=== PATIENT | female | born 1990 | race Caucasian/White ===

== ENCOUNTER 2017-10-18 16:45 | Emergency (ER) | payer OTHER ==
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
[2017-10-18 19:09] VITALS: BP 107/67
== END 2017-10-18 19:08 | disposition home or self-care (01) ==
LOC: ED 16:45
DX: T17.990A Other foreign object in respiratory tract, part unspecified in causing asphyxiation, initial encounter (principal); W16.42XA Fall into unspecified water causing other injury, initial encounter; Y92.095 Swimming-pool of other non-institutional residence as the place of occurrence of the external cause
CPT/HCPCS: 99282; 99283

== ENCOUNTER 2018-05-02 07:35 | Emergency (ER) | payer OTHER ==
--- NOTE | 2018-05-02 07:43 | ED Physician Documentation ---
PD HPI FEMALE - Stated complaint Stated Complaint: PELVIC PX/FEMALE - History obtained from History obtained from: Patient - History of Present Illness Timing - onset: Today Timing - duration: Hours Timing - details: Abrupt onset, Still present Associated symptoms: Abdominal pain (lower abd), Back pain (flank pain both sides), Dysuria, Urinary frequency. No: Fever, Vaginal discharge, Genital sore/lesion Contributing factors: No: , Exposed to STD Recently seen: Not recently seen Review of Systems Constitutional: denies: Fever, Chills, Myalgias Nose: denies: Rhinorrhea / runny nose, Congestion Throat: denies: Sore throat Respiratory: denies: Cough GI: reports: Abdominal Pain, Nausea : reports: Dysuria, Frequency. denies: Discharge Skin: denies: Rash Musculoskeletal: reports: Back pain PD PAST MEDICAL HISTORY - Past Medical History Cardiovascular: None Respiratory: None Neuro: None Endocrine/Autoimmune: None - Past Surgical History Past Surgical History: Yes - Present Medications Home Medications: Ambulatory Orders Medication Instructions Recorded Confirmed Phenazopyridine HCl [Pyridium] 200 mg PO TID PRN #6 tablet 05/02/18 Sulfamethox/Trimeth 800/160 1 each PO BID #14 tablet 05/02/18 [Bactrim Ds 800/160] - Allergies Allergies/Adverse Reactions: Allergies Allergy/AdvReac Type Severity Reaction Status Date / Time No Known Drug Allergies Allergy Verified 05/02/18 07:53 - Social History Does the pt smoke?: No Smoking Status: Never smoker Does the pt drink ETOH?: No Does the pt have substance abuse?: No - Immunizations Immunizations are current?: Yes - POLST Patient has POLST: No PD ED PE NORMAL - Vitals Vital signs reviewed: Yes - General General: Alert and oriented X 3, No acute distress, Well developed/nourished - Abdomen Abdomen: Soft, Non tender - Female Female : Deferred - Back Back: Other (mild CVA tenderness bilaterally) - Derm Derm: Normal color, Warm and dry, No rash - Neuro Neuro: Alert and oriented X 3, No motor deficit, Normal speech Results - Vitals Vitals: Vital Signs - 24 hr 05/02/18 07:38 Temperature 36.9 C Heart Rate 65 Respiratory 16 Rate Blood Pressure 121/80 O2 Saturation 98 Oxygen O2 Source Room air - Labs Labs: Laboratory Tests 05/02/18 05/02/18 08:05 08:05 Urine Color YELLOW Urine Clarity CLOUDY Urine pH 6.0 Ur Specific [place] >=1.030 H >=1.030 H Urine Protein 30 H Urine Glucose (UA) NEGATIVE Urine Ketones NEGATIVE Urine Occult Blood LARGE H Urine Nitrite POSITIVE H Urine Bilirubin NEGATIVE Urine Urobilinogen 0.2 (NORMAL) Ur Leukocyte Esterase MODERATE H Urine RBC TNTC H Urine WBC >25 H Urine WBC Clumps PRESENT Ur Epithelial Cells FEW Transitional Ur Squamous Epith Cells MOD Squamous H Urine Bacteria Many H Urine Mucus Marked Strands Ur Microscopic Review INDICATED Urine Culture Comments NOT INDICATED Urine HCG, Qual NEGATIVE PD MEDICAL DECISION MAKING - ED course Complexity details: reviewed results (UA is very positive for UTI. ), considered differential, d/w patient Departure - Departure Disposition: 01 Home, Self Care Clinical Impression: Dysuria UTI (urinary tract infection) Qualifiers: Urinary tract infection type: acute cystitis Hematuria presence: without hematuria Qualified Code(s): N30.00 - Acute cystitis without hematuria Condition: Stable Record reviewed to determine appropriate education?: Yes Instructions: ED UTI Cystitis Female Follow-Up: MIRTHA INGRAM MD [Primary Care Provider] - Prescriptions: Phenazopyridine HCl [Pyridium] 200 mg PO TID PRN #6 tablet PRN Reason: dysuria Sulfamethox/Trimeth 800/160 [Bactrim Ds 800/160] 1 each PO BID #14 tablet Comments: Your urine test sure shows obviously positive infection. This would correlate with your symptoms. We will treated with Bactrim antibiotic twice daily for a week. Drink lots of fluids. Phenazopyridine if needed for urinary discomfort. It will turn her urine a little orange colored so not to worry. Add ibuprofen or Tylenol or both if needed for pains. This should start improving well over the next day or 2 and be cleared after several days. Discharge Date/Time: 05/02/18 08:53
[2018-05-02 07:53] VITALS: BP 121/80
[2018-05-02 08:18] LABS: BILIRUBIN,URINE NEGATIVE (NEGATIVE); CLARITY,URINE CLOUDY (CLEAR); GLUCOSE, URINE (UA) NEGATIVE (NEGATIVE); KETONES,URINE (UA) NEGATIVE (NEGATIVE); LEUKOCYTE ESTERASE, URINE MODERATE (NEGATIVE); NITRITE,URINE POSITIVE (NEGATIVE); OCCULT BLOOD,URINE LARGE (NEGATIVE); PROTEIN,URINE 30 mg/dL (NEGATIVE); UROBILINOGEN,URINE 0.2 (NORMAL) E.U./dL (NORMAL)
[2018-05-02 08:19] LABS: HCG UR QUAL NEGATIVE
[2018-05-02 08:25] LABS: WBC CLUMPS,URINE PRESENT
[2018-05-02 08:26] LABS: BACTERIA,URINE Many /HPF (None Seen); EPITHELIAL CELLS,UR FEW Transitional /HPF (<= Few); MUCUS,URINE Marked Strands; RBC,URINE TNTC /HPF (0-5); SQUAMOUS EPITHELIAL CELL,UR MOD Squamous (<= Few)
[2018-05-02] MEDS: PHENAZOPYRIDINE 100 MG TABLET PO STA (08:48)
[2018-05-02] MEDS: SULFAMETH/TRIMETH DS 800/160 MG TABLET PO STA (08:48)
== END 2018-05-02 08:53 | disposition home or self-care (01) ==
LOC: ED 07:35
DX: N30.00 Acute cystitis without hematuria (principal)
CPT/HCPCS: 81001; 81025; 99283; A9270; 81003; 87086

== ENCOUNTER 2018-07-29 12:02 | Outpatient (CLI) | payer OTHER ==
--- NOTE | 2018-07-30 20:35 | MRI Report ---
Reason: PAIN IN LEFT KNEE Procedure Date: 07/29/2018 Accession Number: [id number] / [id number] Procedure: MRI - Knee LT W/O CPT Code: FULL RESULT: EXAM: LEFT KNEE MRI WITHOUT CONTRAST. EXAM DATE: 07/29/2018 01:00 PM. CLINICAL HISTORY: Pain in left knee. COMPARISON: None. TECHNIQUE: Multiplanar, multisequence T1-weighted and fluid-sensitive sequences of the knee without contrast. Other: None. FINDINGS: Bones: No acute fracture or bone lesion. Patella scott is present. The lateral trochlear inclination angle is approximately 9 degrees which is just below normal limits. Slight lateral tilt of the patella. Articular Cartilage: Unremarkable. Medial Meniscus: The medial meniscus is intact. Lateral Meniscus: The lateral meniscus is intact. Cruciate Ligaments: The anterior and posterior cruciate ligaments are intact. Collateral Ligaments: The medial collateral and lateral collateral ligamentous structures are intact. Tendons: The quadriceps, patellar, semimembranosus, and popliteus tendons are unremarkable. Musculature: No edema or fatty atrophy. Other: No effusion. No popliteal cyst. No loose bodies. The medial and lateral retinacula are intact. Mild edema within the superolateral aspect of the infrapatellar fat-pad. IMPRESSION: 1. Patella scott and mild trochlear dysplasia. Slight lateral patellar tilt. 2. Mild focal edema within the superolateral aspect of the infrapatellar fat-pad which may be due to focal fat impingement. Clinical correlation with regards to scott patellar tracking. 3. No ligament or meniscal tear. [facility] MUSCULOSKELETAL RADIOLOGY SECTION
== END 2018-07-29 12:03 | disposition home or self-care (01) ==
LOC: DI 12:02
PROVIDERS: ATTEND General Practice
DX: M22.8X2 Other disorders of patella, left knee (principal); R60.0 Localized edema; M25.562 Pain in left knee

== ENCOUNTER 2019-01-16 18:22 | Emergency (ER) | payer OTHER ==
[2019-01-16 19:15] LABS: BILIRUBIN,URINE NEGATIVE (NEGATIVE); GLUCOSE, URINE (UA) NEGATIVE (NEGATIVE); KETONES,URINE (UA) NEGATIVE (NEGATIVE); LEUKOCYTE ESTERASE, URINE TRACE (NEGATIVE); NITRITE,URINE NEGATIVE (NEGATIVE); OCCULT BLOOD,URINE NEGATIVE (NEGATIVE); PH,URINE 6.5 PH (5.0-7.5); PROTEIN,URINE NEGATIVE (NEGATIVE); UROBILINOGEN,URINE 0.2 (NORMAL) E.U./dL (NORMAL)
[2019-01-16 19:16] LABS: CLARITY,URINE CLEAR (CLEAR)
[2019-01-16 19:30] LABS: BACTERIA,URINE None Seen /HPF (None Seen); RBC,URINE None Seen /HPF (0-5); SQUAMOUS EPITHELIAL CELL,UR MOD Squamous (<= Few)
[2019-01-16] MEDS ORDERED: CYCLOBENZAPRINE 10 MG TABLET PO STA (21:09)
[2019-01-16] MEDS ORDERED: MELOXICAM 7.5 MG TABLET PO STA (21:09)
--- NOTE | 2019-01-16 21:13 | ED Physician Documentation ---
PD HPI BACK PAIN - Stated complaint Stated Complaint: BACK PX - Chief complaint Chief Complaint: Back Pain - History obtained from History obtained from: Patient, Family - History of Present Illness Timing - onset: Today (3) Timing - duration: Days (3) Timing - details: Gradual onset Pain level max: 8 Pain level now: 6 Location: Lower, Right Quality: Pain, Spasm, Similar to prior episodes Associated symptoms: No: Fever, Weakness, Numbness, Incontinent of urine, Unable to urinate, Hematuria, Incontinent of stool Improves with: Rest Worsened by: Movement Contributing factors: Lifting (started after lifting, felt her back gradual tighten). No: Twisting, Trauma, Anticoagulated, Cancer, IVDA, Out of meds Recently seen: Not recently seen Review of Systems Constitutional: denies: Fever, Chills Respiratory: denies: Cough GI: denies: Abdominal Pain, Nausea, Vomiting, Diarrhea : denies: Dysuria, Frequency, Hesitancy, Unable to Void, Incontinent, Discharge, Now EGA Skin: denies: Rash Musculoskeletal: denies: Neck pain, Back pain Neurologic: denies: Headache PD PAST MEDICAL HISTORY - Past Medical History Past Medical History: Yes Cardiovascular: None Respiratory: None Neuro: None Endocrine/Autoimmune: None - Past Surgical History Past Surgical History: Yes - Present Medications Home Medications: Ambulatory Orders Medication Instructions Recorded Confirmed Phenazopyridine HCl [Pyridium] 200 mg PO TID PRN #6 tablet 05/02/18 Sulfamethox/Trimeth 800/160 1 each PO BID #14 tablet 05/02/18 [Bactrim Ds 800/160] Cyclobenzaprine [Flexeril] 10 mg PO TID PRN #20 tablet 01/16/19 Meloxicam [Mobic] 15 mg PO DAILY PRN #20 tablet 01/16/19 - Allergies Allergies/Adverse Reactions: Allergies Allergy/AdvReac Type Severity Reaction Status Date / Time No Known Drug Allergies Allergy Verified 01/16/19 18:44 - Social History Does the pt smoke?: No Smoking Status: Never smoker Does the pt drink ETOH?: Yes Does the pt have substance abuse?: No - Immunizations Immunizations are current?: Yes - POLST Patient has POLST: No PD ED PE NORMAL - Vitals Vital signs reviewed: Yes - General General: Alert and oriented X 3, No acute distress, Well developed/nourished - HEENT HEENT: PERRL, Moist mucous membranes - Neck Neck: Supple, no meningeal sign - Cardiac Cardiac: RRR, Strong equal pulses - Respiratory Respiratory: No respiratory distress, Clear bilaterally - Abdomen Abdomen: Soft, Non tender, Non distended - Back Back: No spinal TTP, Other (Bilateral low lumbar paraspinal spasm. No midline tenderness palpation. No step-off or deformity.) - Derm Derm: Warm and dry - Extremities Extremities: Other (Normal bilateral lower extremity patellar and ankle jerk reflexes. Normal great toe extension bilaterally. no saddle anesthesia) - Neuro Neuro: Alert and oriented X 3, No motor deficit, No sensory deficit - Psych Psych: Normal mood, Normal affect Results - Vitals Vitals: Oxygen O2 Source Room air - Labs Labs: Laboratory Tests 01/16/19 18:53 Urine Color YELLOW Urine Clarity CLEAR Urine pH 6.5 Ur Specific [place] 1.010 Urine Protein NEGATIVE Urine Glucose (UA) NEGATIVE Urine Ketones NEGATIVE Urine Occult Blood NEGATIVE Urine Nitrite NEGATIVE Urine Bilirubin NEGATIVE Urine Urobilinogen 0.2 (NORMAL) Ur Leukocyte Esterase TRACE H Urine RBC None Seen Urine WBC 4-5 Ur Squamous Epith Cells MOD Squamous H Urine Bacteria None Seen Ur Microscopic Review INDICATED Urine Culture Comments NOT INDICATED PD MEDICAL DECISION MAKING - ED course Complexity details: considered differential (No cauda equina, no spinal epidural abscess, no fracture, no aortic dissection or evidence of aneursym rupture), d/w patient ED course: 28-year-old female with back spasm. Will place on meloxicam and Flexeril. She is well-appearing, nontoxic. Afebrile. No evidence of epidural abscess or c auda equina. No evidence of fracture. Patient counseled regarding signs and symptoms for which I believe and urgent re-evaluation would be necessary. Patient with good understanding of and agreement to plan and is comfortable going home at this time This document was made in part using voice recognition software. While efforts are made to proofread this document, sound alike and grammatical errors may occur. Departure - Departure Disposition: 01 Home, Self Care Clinical Impression: Back muscle spasm Condition: Good Instructions: ED Spasm Back No Trauma Follow-Up: MIRTHA INGRAM MD [Primary Care Provider] - Within 1 week Prescriptions: Cyclobenzaprine [Flexeril] 10 mg PO TID PRN #20 tablet PRN Reason: Spasms Meloxicam [Mobic] 15 mg PO DAILY PRN #20 tablet PRN Reason: pain Comments: Use the medications as prescribed. Return if you worsen. Follow-up with your doctor for further care. Do not drive or operate heavy machinery while taking the Flexeril. Discharge Date/Time: 01/16/19 21:17
[2019-01-16 21:15] VITALS: BP 110/63
== END 2019-01-16 21:17 | disposition home or self-care (01) ==
LOC: ED 18:22
DX: M62.830 Muscle spasm of back (principal); M54.5 Low back pain; X50.0XXA Overexertion from strenuous movement or load, initial encounter; Y93.89 Activity, other specified; Y99.0 Civilian activity done for income or pay
CPT/HCPCS: 81001; 99283; 99284; A9270; 81003; 87086

== ENCOUNTER 2021-05-24 22:21 | Emergency (ER) | payer OTHER ==
[2021-05-24] MEDS ORDERED: SODIUM CHLORIDE 0.9% 1,000 ML IV STA (22:37)
[2021-05-24 23:22] LABS: EOSINOPHILS # (AUTO) 0.1 10^3/uL (0.0-0.7); EOSINOPHILS % (AUTO) 2.1 %; HCT - HEMATOCRIT 40.8 % (37.0-47.0); HGB - HEMOGLOBIN 13.8 g/dL (12.0-16.0); LYMPHOCYTES # (AUTO) 1.2 10^3/uL (1.5-3.5); LYMPHOCYTES % (AUTO) 30.3 %; MEAN CORPUSCULAR HEMOGLOBIN 29.4 pg (27.0-31.0); MEAN CORPUSCULAR HGB CONC 33.8 g/dL (32.0-36.0); MONOCYTES # (AUTO) 0.5 10^3/uL (0.0-1.0); MONOCYTES % (AUTO) 13.5 %; NEUTROPHILS % (AUTO) 52.6 %; PLT - PLATELET COUNT 265 10^3/uL (130-450); RED BLOOD COUNT 4.69 10^6/uL (4.20-5.40); WHITE BLOOD COUNT 3.9 x10^3/uL (4.8-10.8)
[2021-05-24 23:37] LABS: ALBUMIN 4.2 g/dL (3.2-5.5); ALBUMIN/GLOBULIN RATIO 1.4 (1.0-2.2); BILIRUBIN,TOTAL 0.6 mg/dL (0.2-1.0); CALCIUM 8.5 mg/dL (8.5-10.3); CREATININE 0.7 mg/dL (0.4-1.0); POTASSIUM 3.3 mmol/L (3.5-5.0); TOTAL PROTEIN 7.1 g/dL (6.7-8.2)
--- NOTE | 2021-05-25 01:21 | Ultrasound Report ---
PROCEDURE: Pelvic w/Transvag+Doppler Comp INDICATIONS: pelvic pain, R TECHNIQUE: Real-time scanning was performed of the pelvic organs, with image documentation. Additional endovagi nal scanning was necessary due to incomplete visualization of the adnexal and endometrial structures by transabdominal scanning. COMPARISON: None. FINDINGS: No pathologic free abdominal or pelvic fluid. Uterus: Uterus is anteverted and normal in size at 9.4 x 8.4 x 4.6 cm. No fibroids demonstrated. Th e endometrium measures 13 mm in combined thickness. Endometrium is heterogeneous with a scant amount of fluid. No suspicious blood flow is seen. Linear echogenic foci could represent an IUD. Ovaries: Within normal limits. Blood flow seen in both ovaries. Right ovary measures 3.5 x 2 x 1.7 cm, volume of 6 cc. Left ovary measures 3.5 x 3.5 x 2.6 cm, volume of 17 cc. Left ovarian anechoic cyst measuring 2.2 cm. IMPRESSION: 1. Heterogeneous endometrium with a scant amount of endometrial fluid. Endometrium measures 1.3 cm in thickness. 2. Echogenic foci within the endometrial canal. This likely represents a IUD which is not well visual ized. Pelvic x-ray could be performed for confirmation. 3. Ovaries are within normal limits. Simple left ovarian cyst measuring 2.2 cm. Reviewed by: Walter Rodriguez MD on 05/25/2021 1:20 AM PST Approved by: Walter Rodriguez MD on 05/25/2021 1:20 AM PST Station ID: [id number]
--- NOTE | 2021-05-25 03:05 | ED Physician Documentation ---
PD HPI GI BLEED - Stated complaint Stated Complaint: FEMALE - Chief complaint Chief Complaint: Abd Pain - History obtained from History obtained from: Patient - Additional information Additional information: Patient is brought to the emergency department for chief complaint of heavy vaginal bleeding that started this morning. The patient had a Mirena IUD which was removed 2 days ago. She states that she went to the ID clinic in [place], and that there did not seem to be any problem with the removal. She was told that the IUD had been removed and the patient denies any pain or delaying getting the IUD out. She states that she had a slight bit of spotting initially but no other symptoms. However, when she woke up this morning, She had a large output of blood. She states she was passing clots and that the clots were pushing out a tampon that she had put in. She states the tampon was soaked in 15 minutes. Patient states the bleeding has waxed and waned throughout the course of the day. She does not feel like she is bleeding very heavily right now. She denies any weakness. No bleeding from other locations. She was not put on any other control at the removal of the IUD. 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 Review of Systems Ten Systems: 10 systems reviewed and negative Constitutional: reports: Reviewed and negative Eyes: reports: Reviewed and negative Ears: reports: Reviewed and negative Nose: reports: Reviewed and negative Throat: reports: Reviewed and negative Cardiac: reports: Reviewed and negative Respiratory: reports: Reviewed and negative GI: reports: Reviewed and negative : reports: Vaginal bleeding Skin: reports: Reviewed and negative Musculoskeletal: reports: Reviewed and negative Neurologic: reports: Reviewed and negative Psychiatric: reports: Reviewed and negative Endocrine: reports: Reviewed and negative Immunocompromised: reports: Reviewed and negative PD PAST MEDICAL HISTORY - Past Medical History Past Medical History: Yes Cardiovascular: None Respiratory: None Neuro: None Endocrine/Autoimmune: None Psych: Post traumatic stress disorder - Past Surgical History Past Surgical History: Yes - Present Medications Home Medications: Ambulatory Orders Medication Instructions Recorded Confirmed No Known Home Medications 05/24/21 05/24/21 - Allergies Allergies/Adverse Reactions: Allergies Allergy/AdvReac Type Severity Reaction Status Date / Time No Known Drug Allergies Allergy Verified 05/24/21 22:27 - Social History Does the pt smoke?: No Smoking Status: Never smoker Does the pt drink ETOH?: Yes Does the pt have substance abuse?: No - Immunizations Immunizations are current?: Yes - POLST Patient has POLST: No PD ED PE NORMAL - Vitals Vital signs reviewed: Yes - General General: Alert and oriented X 3, No acute distress, Well developed/nourished - HEENT HEENT: Atraumatic, PERRL, EOMI, Moist mucous membranes - Neck Neck: Supple, no meningeal sign - Cardiac Cardiac: RRR, No murmur, Strong equal pulses - Respiratory Respiratory: No respiratory distress, Clear bilaterally - Abdomen Abdomen: Soft, Non tender, Non distended - Derm Derm: Normal color, Warm and dry, No rash - Extremities Extremities: No deformity, No edema - Neuro Neuro: Alert and oriented X 3 - Psych Psych: Normal mood, Normal affect Results - Vitals Vitals: Vital Signs - 24 hr 05/24/21 05/25/21 05/25/21 22:25 00:51 02:00 Temperature 36.9 C Heart Rate 100 80 88 Respiratory 16 16 18 Rate Blood Pressure 148/87 H 116/86 H 104/79 O2 Saturation 98 98 98 05/25/21 03:10 Temperature 36.9 C Heart Rate 94 Respiratory 14 Rate Blood Pressure 113/96 H O2 Saturation 100 Oxygen O2 Source Room air - Labs Labs: Laboratory Tests 05/24/21 05/24/21 23:00 23:00 WBC 3.9 L RBC 4.69 Hgb 13.8 Hct 40.8 MCV 87.0 MCH 29.4 MCHC 33.8 RDW 13.0 Plt Count 265 MPV 10.0 Neut # (Auto) 2.0 Lymph # (Auto) 1.2 L [place] # (Auto) 0.5 Eos # (Auto) 0.1 Baso # (Auto) 0.0 Absolute Nucleated RBC 0.00 Nucleated RBC % 0.0 Sodium 135 Potassium 3.3 L Chloride 103 Carbon Dioxide 24 Anion Gap 8.0 BUN 12 Creatinine 0.7 Estimated GFR (MDRD) 99 Glucose 90 Calcium 8.5 Total Bilirubin 0.6 AST 15 ALT 18 Alkaline Phosphatase 53 Total Protein 7.1 Albumin 4.2 Globulin 2.9 Albumin/Globulin Ratio 1.4 Lipase 26 - Rads (name of study) pelvic US Radiology: Final report received, See rad report (Heterogenous endometrium; echogenic foci within endometrial canal, possibly IUD) pelvis XR Radiology: Final report received, EMP read indepedently, See rad report (neg) PD MEDICAL DECISION MAKING - ED course Complexity details: reviewed results, re-evaluated patient, considered differential, d/w patient ED course: The patient was evaluated with labs, which showed a normal H&H. She was given a liter of fluid and ultrasound of the pelvis was done. This did show blood and clots, as well as an ill-defined area that was read by the radiologist as showing a possible retained IUD in the endometrial canal, though this was poorly defined. Pelvic x-ray was recommended for confirmation. This was done and found to be negative. I felt the patient was stable for discharge. She was hemodynamically stable with normal labs and I suspected that the bleeding was due to the removal of hormones with the Mirena. The patient did not report any difficulty with the removal and no symptoms that would raise concern for significant trauma to the uterus. Additionally, the bleeding did not start till over 24 hours after removal of the IUD. I discussed with the patient most likely, this bleeding will blow over on its own, but I have encouraged patient t o call her drill rig operator helper first thing in the morning to determine whether she needs to be seen in follow-up. We have discussed the usual indications for return. Departure - Departure Disposition: 01 Home, Self Care Clinical Impression: Dysfunctional uterine bleeding Condition: Stable Instructions: ED Bleed Irregular Vaginal Comments: Your red blood cell levels look good. Your ultrasound showed blood and clots in your uterus, and there was question whether there was still an IUD in the canal of the uterus that leads to the cervix and vagina, versus just the unique appearance of the blood and clots. Although it sounded like your doctor got the IUD out, a pelvic x-ray was obtained to be certain that there is no IUD there, and this did not show the IUD to be present. As we have discussed, it is very important that you call your drill rig operator helper tomorrow to discuss whether you should be followed up, or just wait out the bleeding. Most likely, the bleeding is due to the removal of the hormones that the IUD puts out, and this is triggered your uterus to release its lining. Generally, this is a self-limited thing and will resolve on its own after several days. Discharge Date/Time: 05/25/21 03:10
[2021-05-25 03:39] VITALS: BP 113/96
--- NOTE | 2021-05-25 07:47 | XRAY Report ---
PROCEDURE: Pelvis 1 View INDICATIONS: possible IUD in endometrial canal TECHNIQUE: 1 view(s) of the pelvis acquired. COMPARISON: None. FINDINGS: Bones: No fractures or dislocations. No suspicious bony lesions. Soft tissues: Visualized bowel gas pattern is normal. No suspicious soft tissue calcifications. No intrauterine device identified. No radiodense foreign body. IMPRESSION: No intrauterine device or radiodense foreign body identified. Reviewed by: Tania Lainez MD, PhD on 05/25/2021 7:45 AM [facility] Approved by: Tania Lainez MD, PhD on 05/25/2021 7:45 AM [facility] Station ID: [id number]
== END 2021-05-25 03:10 | disposition home or self-care (01) ==
LOC: ED 22:21
DX: N93.8 Other specified abnormal uterine and vaginal bleeding (principal)
CPT/HCPCS: 36415; 80053; 83690; 85025; 93975; 96360; 96361; 99282

== ENCOUNTER 2021-07-21 14:53 | Emergency (ER) | payer OTHER ==
[2021-07-21 15:42] LABS: BILIRUBIN,URINE NEGATIVE (NEGATIVE); GLUCOSE, URINE (UA) NEGATIVE (NEGATIVE); KETONES,URINE (UA) NEGATIVE (NEGATIVE); LEUKOCYTE ESTERASE, URINE NEGATIVE (NEGATIVE); NITRITE,URINE NEGATIVE (NEGATIVE); OCCULT BLOOD,URINE NEGATIVE (NEGATIVE); PROTEIN,URINE NEGATIVE (NEGATIVE); UROBILINOGEN,URINE 0.2 (NORMAL) E.U./dL (NORMAL)
[2021-07-21 15:47] LABS: CLARITY,URINE CLEAR (CLEAR); HCG UR QUAL POSITIVE
[2021-07-21 15:49] LABS: ALBUMIN/GLOBULIN RATIO 1.2 (1.0-2.2); BILIRUBIN,TOTAL 0.6 mg/dL (0.2-1.0); CALCIUM 8.8 mg/dL (8.5-10.3); CREATININE 0.7 mg/dL (0.4-1.0); POTASSIUM 3.6 mmol/L (3.5-5.0); TOTAL PROTEIN 7.3 g/dL (6.7-8.2)
--- NOTE | 2021-07-21 16:05 | ED Physician Documentation ---
History of Present Illness - Stated complaint Stated Complaint: LOW ABD PX - Chief complaint Chief Complaint: Abd Pain - History obtained from History obtained from: Patient - History of Present Illness Timing: Today Pain level max: 5 Pain level now: 3 - Additonal information Additional information: Patient is a 30-year-old female who presents to the emergency department with right lower quadrant abdominal pain. This is gradually increased throughout the day. Started today. She states that she is 5 weeks as well. No vaginal bleeding. No cramping. 3 para 1. Review of Systems Constitutional: denies: Fever, Chills Ears: denies: Ear pain Nose: denies: Rhinorrhea / runny nose, Congestion Throat: denies: Sore throat Cardiac: denies: Chest pain / pressure Respiratory: denies: Cough GI: denies: Nausea, Vomiting, Diarrhea : denies: Dysuria, Frequency, Hesitancy Skin: denies: Rash Musculoskeletal: denies: Neck pain, Back pain Neurologic: denies: Headache PD PAST MEDICAL HISTORY - Past Medical History Cardiovascular: None Respiratory: None Neuro: None Endocrine/Autoimmune: None Psych: Post traumatic stress disorder - Past Surgical History Past Surgical History: Yes - Present Medications Home Medications: Ambulatory Orders Medication Instructions Recorded Confirmed No122/Iron/Folic Acid 1 each PO DAILY 07/21/21 07/21/21 [ Multi Tablet] - Allergies Allergies/Adverse Reactions: Allergies Allergy/AdvReac Type Severity Reaction Status Date / Time No Known Drug Allergies Allergy Verified 07/21/21 15:07 - Social History Does the pt smoke?: No Smoking Status: Never smoker Does the pt drink ETOH?: Yes Does the pt have substance abuse?: No - Immunizations Immunizations are current?: Yes - POLST Patient has POLST: No PD ED PE NORMAL - Vitals Vital signs reviewed: Yes - General General: Alert and oriented X 3, No acute distress - HEENT HEENT: Moist mucous membranes - Neck Neck: Supple, no meningeal sign - Cardiac Cardiac: RRR - Respiratory Respiratory: No respiratory distress, Clear bilaterally - Abdomen Abdomen: Soft, Non distended, Other (Tender to palpation right lower quadrant at McBurney's point. Negative psoas, Rovsing's and obturator signs. Negative he eltap.) - Back Back: No CVA TTP - Derm Derm: Warm and dry - Neuro Neuro: Alert and oriented X 3 Results - Vitals Vitals: Vital Signs - 24 hr 07/21/21 07/21/21 07/21/21 15:08 17:34 19:12 Temperature 36.9 C 36.8 C Heart Rate 84 100 Respiratory 18 18 16 Rate Blood Pressure 128/82 H 118/69 O2 Saturation 98 100 07/21/21 07/21/21 19:19 19:49 Temperature 37.0 C 37 C Heart Rate 98 91 Respiratory 16 16 Rate Blood Pressure 122/69 121/62 O2 Saturation 96 97 Oxygen O2 Source Room air - Labs Labs: Laboratory Tests 07/21/21 07/21/21 07/21/21 15:23 15:32 15:32 WBC 9.1 RBC 4.60 Hgb 13.8 Hct 39.9 MCV 86.7 MCH 30.0 MCHC 34.6 RDW 13.3 Plt Count 332 MPV 10.1 Neut # (Auto) 6.2 Lymph # (Auto) 2.1 [place] # (Auto) 0.6 Eos # (Auto) 0.1 Baso # (Auto) 0.1 Absolute Nucleated RBC 0.00 Nucleated RBC % 0.0 Sodium 131 L Potassium 3.6 Chloride 101 Carbon Dioxide 23 Anion Gap 7.0 BUN 9 Creatinine 0.7 Estimated GFR (MDRD) 99 Glucose 90 Calcium 8.8 Total Bilirubin 0.6 AST 22 ALT 46 Alkaline Phosphatase 45 Total Protein 7.3 Albumin 4.0 Globulin 3.3 Albumin/Globulin Ratio 1.2 Lipase 28 HCG, Quant Urine Color YELLOW Urine Clarity CLEAR Urine pH 6.0 Ur Specific [place] 1.010 Urine Protein NEGATIVE Urine Glucose (UA) NEGATIVE Urine Ketones NEGATIVE Urine Occult Blood NEGATIVE Urine Nitrite NEGATIVE Urine Bilirubin NEGATIVE Urine Urobilinogen 0.2 (NORMAL) Ur Leukocyte Esterase NEGATIVE Ur Microscopic Review NOT INDICATED Urine Culture Comments NOT INDICATED Urine HCG, Qual POSITIVE 07/21/21 15:32 WBC RBC Hgb Hct MCV MCH MCHC RDW Plt Count MPV Neut # (Auto) Lymph # (Auto) [place] # (Auto) Eos # (Auto) Baso # (Auto) Absolute Nucleated RBC Nucleated RBC % Sodium Potassium Chloride Carbon Dioxide Anion Gap BUN Creatinine Estimated GFR (MDRD) Glucose Calcium Total Bilirubin AST ALT Alkaline Phosphatase Total Protein Albumin Globulin Albumin/Globulin Ratio Lipase HCG, Quant 54926.00 Urine Color Urine Clarity Urine pH Ur Specific [place] Urine Protein Urine Glucose (UA) Urine Ketones Urine Occult Blood Urine Nitrite Urine Bilirubin Urine Urobilinogen Ur Leukocyte Esterase Ur Microscopic Review Urine Culture Comments Urine HCG, Qual - Rads (name of study) Right lower quadrant ultrasound Radiology: Final report received, EMP read contemporaneously, See rad report OB ultrasound Radiology: Final report received, EMP read contemporaneously, See rad report PD MEDICAL DECISION MAKING - ED course Complexity details: reviewed results, re-evaluated patient, considered differential, d/w patient, d/w entry level sales consultant ED course: 30-year-old female approximately 6 weeks presents with right lower quadrant abdominal pain. She is tender at McBurney's point. The ultrasound reveals an appendix the upper limits of normal. No leukocytosis. No fever. She does still have an appetite. The pain was coming and going earlier in the day, but has become more constant. Discussed the case with general surgery, Dr. Trujillo who came and evaluated the patient. He recommended transfer for MRI. Discussed the case with [facility] who originally thought they had an fingerprint technician until 8 PM, however the tech actually went home at 7:30 PM, therefore the patient would not arrive in time to have the MRI performed. Discussed the case with [facility] who does not have an fingerprint technician tonight. Discussed the case with [facility] who stated that they could perform the MRI, but could not accept the patient. The patient does not want to stay in the hospital tonight for observation and IV antibiotics. Discussed the risks of going home including perforation, sepsis, loss of , worsening symptoms. Patient accepts the risks and will return in the morning for an MRI. Given Augmentin here. Patient strongly encouraged to return if she changes her mind about observation. Patient given strict return precautions for worsening symptoms. This document was made in part using voice recognition software. While efforts are made to proofread this document, sound alike and grammatical errors may occur. IMPRESSION: 1. Appendix size is in the upper limits of normal. No appendiceal wall thickening or periappendiceal inflammatory changes. Very early acute appendicitis cannot be entirely excluded given presence of lower abdominal pain particularly right lower quadrant pain in this area. Clinical correlation and follow-up is recommended. If indicated, CT can be done for further evaluation of this region. IMPRESSION: 1. Single live intrauterine with fetus and yolk sac seen. heart rate is 112 bpm. Estimated gestational age is 6 weeks, 0 day. 2. Small corpus luteum in left ovary. No perigestational hemorrhage. Departure - Departure Disposition: 01 Home, Self Care Clinical Impression: Abdominal pain Qualifiers: Abdominal location: right lower quadrant Qualified Code(s): R10.31 - Right lower quadrant pain Qualifiers: Weeks of gestation: less than 8 weeks Qualified Code(s): Z3A.01 - Less than 8 weeks gestation of Condition: Good Instructions: ED Abdominal Pain Appendx Poss Follow-Up: SANAM CARD MD [Primary Care Provider] - Comments: Please return to the emergency department in the morning and reregister to have an MRI performed of your abdomen. As we discussed we cannot rule out appendicitis based on the ultrasound today. We offered observation in the hospital overnight with IV antibiotics and serial exams. You have declined this. We did give you antibiotics tonight. You do understand the if it is appendicitis, this could worsen overnight and cause rupture, abscess, loss of , sepsis or other complications. You are welcome to return at any time should you change your mind about further evaluation and observation. Please return sooner if you worsen. Discharge Date/Time: 07/21/21 19:50
[2021-07-21 16:17] LABS: BASOPHILS # (AUTO) 0.1 10^3/uL (0.0-0.1); BASOPHILS % (AUTO) 0.7 %; EOSINOPHILS # (AUTO) 0.1 10^3/uL (0.0-0.7); EOSINOPHILS % (AUTO) 1.2 %; HCT - HEMATOCRIT 39.9 % (37.0-47.0); HGB - HEMOGLOBIN 13.8 g/dL (12.0-16.0); LYMPHOCYTES # (AUTO) 2.1 10^3/uL (1.5-3.5); LYMPHOCYTES % (AUTO) 22.9 %; MEAN CORPUSCULAR HGB CONC 34.6 g/dL (32.0-36.0); MEAN CORPUSCULAR VOLUME 86.7 fL (81.0-99.0); MEAN PLATELET VOLUME 10.1 fL (7.9-10.8); MONOCYTES # (AUTO) 0.6 10^3/uL (0.0-1.0); NEUTROPHILS # (AUTO) 6.2 10^3/uL (1.5-6.6); NEUTROPHILS % (AUTO) 67.9 %; PLT - PLATELET COUNT 332 10^3/uL (130-450); RED CELL DISTRIBUTION WIDTH 13.3 % (12.0-15.0); WHITE BLOOD COUNT 9.1 x10^3/uL (4.8-10.8)
--- NOTE | 2021-07-21 17:46 | Ultrasound Report ---
PROCEDURE: OB First Trimester w/TV INDICATIONS: R pelvic pain, 5 weeks preg OUTSIDE/PRIOR DATING DATA: Last menstrual period (LMP): 06/11/2021 LMP-based estimated date of delivery (GEORGE): 03/18/2022. First dating scan (date and location): 07/21/2021. Estimated date of delivery (GEORGE) from first dating scan: 03/16/2022. The below data below was generated using the study generated GEORGE of 03/16/2022 TECHNIQUE: Real-time scanning was performed of the fetus and maternal pelvic organs, with image documentation. Endovaginal scanning was also performed to better visualize the fetus and maternal ovaries. COMPARISON: None FINDINGS: Embryo: Single intrauterine gestational sac is seen with fetus and yolk sac seen. Elkins-rump length measures 3.6 mm. Estimated gestational age is 6 weeks, 0 day. Heart rate: 112 bpm. No perigestational hemorrhage is seen. Cervix is closed and measures 4.6 cm in length. Measurement variability in dating: +/- 4 weeks by LMP, +/- 7 days by mean sac diameter (use before 6 weeks gestation if crown-rump length not able to be measured), +/- 5 days by crown-rump length (6-12 weeks gestation). Maternal organs: Right ovary is within normal limits. Small corpus luteum is noted in left ovary. IMPRESSION: 1. Single live intrauterine with fetus and yolk sac seen. heart rate is 112 bpm. Amaris mated gestational age is 6 weeks, 0 day. 2. Small corpus luteum in left ovary. No perigestational hemorrhage. Reviewed by: Mati Daniel MD on 07/21/2021 5:44 PM PST Approved by: Mati Daniel MD on 07/21/2021 5:44 PM PST Station ID: [id number]
--- NOTE | 2021-07-21 17:50 | Ultrasound Report ---
PROCEDURE: Abdomen Limited INDICATIONS: RLQ abd pain TECHNIQUE: Real-time focused scanning was performed of the abdomen, with image documentation. COMPARISON: None. FINDINGS: Appendix is partially visualized. Maximum appendiceal diameter is 8.7 mm in its midportion. Maximal w all thickness is 2.1 mm. Echogenic fat is present adjacent to appendix. Mural hyperemia is absent. Appendix is normally compressible. There is absent of appendicoliths. There is absent of free fluid. No lymphadenopathy is seen in right lower quadrant abdomen. Right lower quadrant tenderness is present during the study. IMPRESSION: 1. Appendix size is in the upper limits of normal. No appendiceal wall thickening or periappendiceal inflammatory changes. Very early acute appendicitis cannot be entirely excluded given presence of low er abdominal pain particularly right lower quadrant pain in this area. Clinical correlation and follo w-up is recommended. If indicated, CT can be done for further evaluation of this region. Reviewed by: Mati Daniel MD on 07/21/2021 5:49 PM PST Approved by: Mati Daniel MD on 07/21/2021 5:49 PM PST Station ID: [id number]
--- NOTE | 2021-07-21 18:43 | HISTORY & PHYSICAL EXAMINATION ---
Chief Complaint - Chief Complaint Chief Complaint: abdominal pain History of Present Illness - History of Present Illness HPI Comment/Other: Pt is a 30 yo F currently 5 weeks with hx PTSD/anxiety and tonsillectomy who presents with abdominal pain. Pain in started this am in RLQ, was never generalized, does not radiate, waxed and waned (occasionally gone completely), 3/10 intensity, made worse with palpation. Some assx mild anorexia and occasional nausea, no vomiting, no fevers/chills. Never had similar episodes. In ED she is afebrile, normotensive, not tachycardic. Normal WBC at 9. Rest of labs unremarkable. US showing borderline size of appy but no thickening, still compressible, no fecaliths; normal IUP. Could not rule out early appendicitis. History - Past Medical History Cardiovascular: reports: None Respiratory: reports: None Neuro: reports: None Endocrine/Autoimmune: reports: None Psych: reports: Anxiety, Post traumatic stress disorder MRSA Hx?: No - Past Surgical History HEENT: reports: Tonsil/Adenoidectomy Other past surgical history: ganglion cyst removed L wrist - Substance History Use: Uses substance without health or social issues: NONE - POLST Patient has POLST: No Meds/Allgy - Home Medications Home Medications: Ambulatory Orders Medication Instructions Recorded Confirmed No122/Iron/Folic Acid 1 each PO DAILY 07/21/21 07/21/21 [ Multi Tablet] - Allergies Allergies/Adverse Reactions: Allergies Allergy/AdvReac Type Severity Reaction Status Date / Time No Known Drug Allergies Allergy Verified 07/21/21 15:07 Review of Systems - Constitutional Constitutional: reports: Poor appetite. denies: Fever, Chills - Eyes Eyes: denies: Pain, Blurred vision - Ears, Nose & Throat Ears, Nose & Throat: denies: Hearing loss - Cardiovascular Cariovascular: denies: Chest pain - Respiratory Respiratory: denies: Cough, Wheezing, SOB at rest, SOB with exertion - Gastrointestinal Gastrointestinal: reports: Abdominal pain, Nausea. denies: Vomiting - Genitourinary Genitourinary: denies: Dysuria - Musculoskeletal Musculoskeletal: denies: Muscle pain, Joint pain - Integumentary Integumentary: denies: Rash - Neurological Neurological: denies: General weakness - Psychiatric Psychiatric: reports: Anxiety. denies: Depression - Endocrine Endocrine: denies: Polyuria, Polydypsia - Hematologic/Lymphatic Hematologic/Lymphatic: denies: Anemia, Bruising Exam - Vital Signs Reviewed Vital Signs: Yes Vital Signs: Vital Signs x48h Temp Pulse Resp BP Pulse Ox 07/21/21 17:34 36.8 C 100 18 118/69 100 07/21/21 15:08 36.9 C 84 18 128/82 H 98 - Physical Exam General Appearance: positive: No acute distress Eyes Bilateral: positive: EOMI ENT: positive: Other (normocephalic, atraumatic) Respiratory: positive: No respiratory distress Cardiovascular: positive: Regular rate & rhythm Abdomen: positive: Other (soft, obese, mildly TTP in RLQ, rest of abdomen non- tender, no rebound or guarding) Skin: positive: Warm, Dry Extremities: positive: No pedal edema Neurologic/Psychiatric: positive: Oriented x3 Conclusion/Plan - Lab Results Lab results reviewed: Yes Fish Bones: 07/21/21 15:32 07/21/21 15:32 - Diagnostic Imaging Results Diagnostic Imaging Results: positive: See rad report - Other Other Results/Comments: 30 yo F currently ~5 weeks with hx PTSD/anxiety and tonsillectomy who presents with abdominal pain. History not classic for appendicitis (no generalized pain, pain would go away completely), exam with only mild TTP in RLQ, normal WBC, US with borderline size appendix but no wall thickening and compressible, no fecaliths. - favor getting MRI A/P to evaluate for appendicitis given equivocal history/exam/dx studies and risk of missed dx/tx in - re-evaluate after cross-sectional imaging - keep NPO - if appendicitis will plan to do lap appy - plan discussed with patient who is in agreement; plan also discussed with ED physician Please don't hesitate to call with questions or concerns. Eliseo Trujillo MD General Surgery
[2021-07-21] MEDS ORDERED: AMOX/CLAV 875 MG/125 MG TABLET PO STA (19:37)
[2021-07-21 19:50] VITALS: BP 121/62
== END 2021-07-21 19:50 | disposition home or self-care (01) ==
LOC: ED 14:53
DX: O26.891 Other specified pregnancy related conditions, first trimester (principal); R10.31 Right lower quadrant pain; Z3A.01 Less than 8 weeks gestation of pregnancy
CPT/HCPCS: 36415; 76705; 76801; 76817; 80053; 81003; 81025; 83690; 84702; 85025; 99204; 99282; 99284; A9270; 81001; 87086

== ENCOUNTER 2021-07-22 07:23 | Emergency (ER) | payer OTHER ==
--- NOTE | 2021-07-22 07:53 | ED Physician Documentation ---
PD HPI ABD PAIN - Stated complaint Stated Complaint: RLQ PAIN - Chief complaint Chief Complaint: Abd Pain - History obtained from History obtained from: Patient - History of Present Illness Timing - onset: Yesterday Timing - duration: Days (2) Timing - details: Gradual onset, Still present Quality: Sharp, Pain Location: RLQ Improved by: Laying still Worsened by: Moving, Position, Palpation Associated symptoms: No: Fever, Nausea, Vomiting, Diarrhea Similar symptoms before: Has not had sx before Recently seen: Emergency Dept - Additional information Additional information: 30-year-old gravid female who presented to the emergency department yesterday with right lower quadrant abdominal pain had a ultrasound concerning for early appendicitis which was equivocal and an attempt was made to transfer the patient for MRI. This was not possible and the patient elected to return home. She refused admission into the hospital for overnight observation. She was administered a dose of Augmentin orally last night. She was able to eat dinner at 8:30 PM last night she had no nausea associated with this. Her pain is improved this morning. She continues to have some right lower quadrant pain. Review of Systems Constitutional: denies: Fever Eyes: denies: Decreased vision Ears: denies: Ear pain Nose: denies: Congestion Throat: denies: Sore throat Cardiac: denies: Chest pain / pressure Respiratory: denies: Dyspnea, Cough GI: reports: Abdominal Pain. denies: Nausea, Vomiting, Constipation, Diarrhea : denies: Dysuria, Frequency Skin: denies: Rash Musculoskeletal: denies: Neck pain, Back pain, Extremity pain Neurologic: denies: Generalized weakness, Focal weakness, Numbness PD PAST MEDICAL HISTORY - Past Medical History Past Medical History: Yes Cardiovascular: None Respiratory: None Neuro: None Endocrine/Autoimmune: None Psych: Post traumatic stress disorder - Past Surgical History Past Surgical History: Yes HEENT: Tonsil/Adenoidectomy - Present Medications Home Medications: Ambulatory Orders Medication Instructions Recorded Confirmed No122/Iron/Folic Acid 1 each PO DAILY 07/21/21 07/22/21 [ Multi Tablet] Amox/Clav 875/125 [Augmentin] 1 each PO Q12H #14 tablet 07/22/21 - Allergies Allergies/Adverse Reactions: Allergies Allergy/AdvReac Type Severity Reaction Status Date / Time No Known Drug Allergies Allergy Verified 07/22/21 07:32 - Social History Does the pt smoke?: No Smoking Status: Never smoker Does the pt drink ETOH?: Yes Does the pt have substance abuse?: No - Immunizations Immunizations are current?: Yes - POLST Patient has POLST: No PD ED PE NORMAL - Vitals Vital signs reviewed: Yes (hypertensive mild ) - General General: Alert and oriented X 3, No acute distress, Well developed/nourished - HEENT HEENT: Atraumatic, PERRL, EOMI - Neck Neck: Supple, no meningeal sign, No bony TTP - Cardiac Cardiac: RRR, No murmur - Respiratory Respiratory: No respiratory distress, Clear bilaterally - Abdomen Abdomen: Normal bowel sounds, Soft, Non distended, No organomegaly, Other (RLQ tenderness is specific in location without garding or rebound. No other tenderness elicited. ) - Back Back: No CVA TTP, No spinal TTP - Derm Derm: Normal color, Warm and dry, No rash - Extremities Extremities: No deformity, No edema - Neuro Neuro: Alert and oriented X 3, [place] 2-12 intact, No motor deficit, No sensory deficit, Normal speech Eye Opening: Spontaneous Motor: Obeys Commands Verbal: Oriented GCS Score: 15 - Psych Psych: Normal mood, Normal affect Results - Vitals Vitals: Vital Signs - 24 hr 07/22/21 07:29 Temperature 37 C Heart Rate 80 Respiratory 18 Rate Blood Pressure 126/85 H O2 Saturation 98 Oxygen O2 Source Room air - Labs Labs: Laboratory Tests 07/22/21 07/22/21 09:22 09:22 WBC 6.7 RBC 4.60 Hgb 13.6 Hct 40.4 MCV 87.8 MCH 29.6 MCHC 33.7 RDW 13.3 Plt Count 273 MPV 9.9 Neut # (Auto) 4.6 Lymph # (Auto) 1.5 [place] # (Auto) 0.5 Eos # (Auto) 0.1 Baso # (Auto) 0.0 Absolute Nucleated RBC 0.00 Nucleated RBC % 0.0 Sodium 137 Potassium 3.8 Chloride 106 Carbon Dioxide 23 Anion Gap 8.0 BUN 11 Creatinine 0.6 Estimated GFR (MDRD) 118 Glucose 91 Calcium 9.1 Total Bilirubin 0.7 AST 19 ALT 43 Alkaline Phosphatase 42 Total Protein 7.2 Albumin 4.1 Globulin 3.1 Albumin/Globulin Ratio 1.3 Lipase 27 PD MEDICAL DECISION MAKING - ED course Complexity details: reviewed old records, reviewed results, re-evaluated patient, considered differential, d/w patient, d/w service consultant (Dr. Trujillo surgery asks for repeat blood work when the MRI is cancelled. This is reassuring as is the exam and he is recommending PO agumentin and conservative managment. ) ED course: 30-year-old female with right lower quadrant abdominal pain was evaluated in the emerge department yesterday and found on ultrasound to have signs of early appendicitis. Arrangements were made for the patient to have MRI scan done and this fell through when no scanners were available in the area. The patient was given a dose of Augmentin and asked to return in the morning for scanning. She had refused hospitalization for observation. She has improved overnight both in her pain and her symptoms. She is able to eat last night was able to hold that down without difficulty and this morning her pain is much improved. On reexamination she does not have guarding or rebound. She does have specific tenderness. That is mild. She has not had any vomiting. We attempted to have the patient's MRI done here and the MRI machine was available with an available critical power technician and the radiologist recommended not doing the study in the first trimester. Dr. Trujillo has recommended a short course of Augmentin and close follow-up. I believe the patient will do well with this as she looks like she has demonstrated improvement in her symptoms with a single dose of Augmentin. I have told the patient it is likely she will need to have her appendix taken out in the next year and I have asked the patient return should she have recurrence or worsening of symptoms. Departure - Departure Disposition: 01 Home, Self Care Clinical Impression: Abdominal pain Qualifiers: Abdominal location: right lower quadrant Qualified Code(s): R10.31 - Right lower quadrant pain Condition: Stable Instructions: ED Abdominal Pain Appendx Poss Follow-Up: SANAM CARD MD [Primary Care Provider] - Prescriptions: Amox/Clav 875/125 [Augmentin] 1 each PO Q12H #14 tablet Comments: Aditi, today it looks like you have improvement in your right lower quadrant abdominal pain. This still is likely appendicitis and it appears to be r esponding to antibiotic therapy. The recommendation today is to take the Augmentin twice per day resume your usual activities and if you develop worsening of this pain despite this treatment the recommendation is to return to the emergency department. There is a chance that you will still need to have your appendix out at sometime in the next year or two. The augmentin has been e- scribed to [facility] in [place].
[2021-07-22 09:28] LABS: BASOPHILS % (AUTO) 0.6 %; EOSINOPHILS # (AUTO) 0.1 10^3/uL (0.0-0.7); EOSINOPHILS % (AUTO) 1.2 %; HCT - HEMATOCRIT 40.4 % (37.0-47.0); HGB - HEMOGLOBIN 13.6 g/dL (12.0-16.0); LYMPHOCYTES # (AUTO) 1.5 10^3/uL (1.5-3.5); LYMPHOCYTES % (AUTO) 22.4 %; MEAN CORPUSCULAR HEMOGLOBIN 29.6 pg (27.0-31.0); MEAN CORPUSCULAR HGB CONC 33.7 g/dL (32.0-36.0); MEAN CORPUSCULAR VOLUME 87.8 fL (81.0-99.0); MEAN PLATELET VOLUME 9.9 fL (7.9-10.8); MONOCYTES # (AUTO) 0.5 10^3/uL (0.0-1.0); NEUTROPHILS # (AUTO) 4.6 10^3/uL (1.5-6.6); NEUTROPHILS % (AUTO) 68.5 %; PLT - PLATELET COUNT 273 10^3/uL (130-450); RED CELL DISTRIBUTION WIDTH 13.3 % (12.0-15.0); WHITE BLOOD COUNT 6.7 x10^3/uL (4.8-10.8)
[2021-07-22 09:40] LABS: ALBUMIN 4.1 g/dL (3.2-5.5); ALBUMIN/GLOBULIN RATIO 1.3 (1.0-2.2); BILIRUBIN,TOTAL 0.7 mg/dL (0.2-1.0); CALCIUM 9.1 mg/dL (8.5-10.3); CREATININE 0.6 mg/dL (0.4-1.0); POTASSIUM 3.8 mmol/L (3.5-5.0); TOTAL PROTEIN 7.2 g/dL (6.7-8.2)
[2021-07-22 10:12] VITALS: BP 103/71
== END 2021-07-22 10:24 | disposition home or self-care (01) ==
LOC: ED 07:23
DX: R10.31 Right lower quadrant pain (principal)
CPT/HCPCS: 36415; 80053; 83690; 85025; 99284

== ENCOUNTER 2022-09-17 09:26 | Outpatient (CLI) | payer OTHER | END 2022-09-17 09:27 | disposition critical access hospital (66) | LOC: EMS 09:26 | DX: R45.851 Suicidal ideations (principal) | CPT/HCPCS: A0425; A0429 ==

== ENCOUNTER 2022-09-17 09:48 | Emergency (ER) | payer OTHER ==
--- NOTE | 2022-09-17 10:06 | ED Physician Documentation ---
PD HPI MHE - Stated complaint Stated Complaint: SI - Chief complaint Chief Complaint: MHE - History obtained from History obtained from: Patient, EMS - History of Present Illness Primary symptom: Suicidal ideation Pain level max: 0 Pain level now: 0 Contributing factors: Family. No: Substance abuse - ETOH, Substance abuse - dr sanchez - Additional information Additional information: Patient is a 32-year-old female who is brought into the emergency department for mental health evaluation. She is brought in by EMS. Reportedly she threatened to kill herself with a gun today. She is approximately 6 months . She states that her baby does not sleep through the night, wakes up about every 30 minutes. She states that her baby also will not take a bottle. She does not feel that she has a good family or social support nearby. She does live with her and 6-year-old child as well. She states that they are having their 6-year-old child looked at to see if he is special needs/autistic. She has never attempted suicide before. She has had issues with depression in the past and PTSD. She does see a psychiatrist/psychotherapist through the [place]. She states that she is being switched to a new provider. She states that she feels tired today. She also has chronic headaches. She states that she has never attempted suicide before and never been hospitalized for psychiatric care. Review of Systems Constitutional: denies: Fever, Chills GI: denies: Vomiting, Diarrhea Skin: denies: Rash Musculoskeletal: denies: Neck pain, Back pain Neurologic: denies: Headache PD PAST MEDICAL HISTORY - Past Medical History Cardiovascular: None Respiratory: None Neuro: None Endocrine/Autoimmune: None Psych: Post traumatic stress disorder - Past Surgical History Past Surgical History: Yes HEENT: Tonsil/Adenoidectomy - Present Medications Home Medications: Ambulatory Orders Medication Instructions Recorded Confirmed No122/Iron/Folic Acid 1 each PO DAILY 07/21/21 09/17/22 [ Multi Tablet] - Allergies Allergies/Adverse Reactions: Allergies Allergy/AdvReac Type Severity Reaction Status Date / Time hydroxyzine [From Vistaril] Allergy Emesis Verified 09/17/22 10:07 prazosin [From Minipress] Allergy Emesis Verified 09/17/22 10:07 - Living Situation Living Situation: reports: With family Living Arrangement: reports: At home - Social History Does the pt smoke?: No Smoking Status: Never smoker Does the pt drink ETOH?: No Does the pt have substance abuse?: No - Immunizations Immunizations are current?: Yes - POLST Patient has POLST: No PD ED PE NORMAL - Vitals Vital signs reviewed: Yes - General General: Alert and oriented X 3, Well developed/nourished, Other (tearful) - HEENT HEENT: PERRL, Moist mucous membranes, Pharynx benign - Neck Neck: Supple, no meningeal sign - Cardiac Cardiac: RRR, Strong equal pulses - Respiratory Respiratory: No respiratory distress, Clear bilaterally - Abdomen Abdomen: Soft, Non tender, Non distended - Back Back: No CVA TTP, No spinal TTP - Derm Derm: Warm and dry, No rash - Extremities Extremities: No edema, No calf tenderness / cord - Neuro Neuro: Alert and oriented X 3 - Psych Psych: Normal mood, Normal affect Results - Vitals Vitals: Vital Signs - 24 hr 09/17/22 09/17/22 10:00 15:12 Temperature 36.9 C 36.8 C Heart Rate 89 84 Respiratory 18 15 Rate Blood Pressure 114/86 H 121/89 H O2 Saturation 97 98 Oxygen O2 Source Room air - Labs Labs: Laboratory Tests 09/17/22 09/17/22 09/17/22 10:06 10:06 10:06 WBC 8.1 RBC 4.81 Hgb 13.9 Hct 41.9 MCV 87.1 MCH 28.9 MCHC 33.2 RDW 13.1 Plt Count 306 MPV 9.8 Neut # (Auto) 5.8 Lymph # (Auto) 1.6 Tama # (Auto) 0.5 Eos # (Auto) 0.2 Baso # (Auto) 0.0 Absolute Nucleated RBC 0.00 Nucleated RBC % 0.0 Sodium 137 Potassium 3.8 Chloride 109 Carbon Dioxide 23 Anion Gap 5.0 L BUN 13 Creatinine 0.6 Estimated GFR (MDRD) 117 Glucose 91 Calcium 8.9 Total Bilirubin 0.7 AST 11 ALT 15 Alkaline Phosphatase 74 Total Protein 7.5 Albumin 4.2 Globulin 3.3 Albumin/Globulin Ratio 1.3 Lipase 30 TSH 3.01 Urine Color Urine Clarity Urine pH Ur Specific [place] Urine Protein Urine Glucose (UA) Urine Ketones Urine Occult Blood Urine Nitrite Urine Bilirubin Urine Urobilinogen Ur Leukocyte Esterase Ur Microscopic Review Urine Culture Comments Salicylates < 6.0 Urine Opiates Screen Ur Oxycodone Screen Urine Methadone Screen Ur Propoxyphene Screen Acetaminophen < 10 L Ur Barbiturates Screen Ur Tricyclics Screen Ur Phencyclidine Scrn Ur Amphetamine Screen U Methamphetamines Scrn U Benzodiazepines Scrn Urine Cocaine Screen U Cannabinoids Screen Ethyl Alcohol < 5.0 SARS-CoV-2 (PCR) 09/17/22 09/17/22 10:30 13:04 WBC RBC Hgb Hct MCV MCH MCHC RDW Plt Count MPV Neut # (Auto) Lymph # (Auto) [place] # (Auto) Eos # (Auto) Baso # (Auto) Absolute Nucleated RBC Nucleated RBC % Sodium Potassium Chloride Carbon Dioxide Anion Gap BUN Creatinine Estimated GFR (MDRD) Glucose Calcium Total Bilirubin AST ALT Alkaline Phosphatase Total Protein Albumin Globulin Albumin/Globulin Ratio Lipase TSH Urine Color YELLOW Urine Clarity CLEAR Urine pH 6.0 Ur Specific [place] 1.020 Urine Protein NEGATIVE Urine Glucose (UA) NEGATIVE Urine Ketones NEGATIVE Urine Occult Blood NEGATIVE Urine Nitrite NEGATIVE Urine Bilirubin NEGATIVE Urine Urobilinogen 0.2 (NORMAL) Ur Leukocyte Esterase NEGATIVE Ur Microscopic Review NOT INDICATED Urine Culture Comments NOT INDICATED Salicylates Urine Opiates Screen NEGATIVE Ur Oxycodone Screen NEGATIVE Urine Methadone Screen NEGATIVE Ur Propoxyphene Screen NEGATIVE Acetaminophen Ur Barbiturates Screen NEGATIVE Ur Tricyclics Screen NEGATIVE Ur Phencyclidine Scrn NEGATIVE Ur Amphetamine Screen NEGATIVE U Methamphetamines Scrn NEGATIVE U Benzodiazepines Scrn NEGATIVE Urine Cocaine Screen NEGATIVE U Cannabinoids Screen NEGATIVE Ethyl Alcohol SARS-CoV-2 (PCR) NOT DETECTED PD Medical Decision Making - ED course Complexity details: reviewed results, re-evaluated patient, considered differential, d/w patient, d/w relationship consultant ED course: Patient is medically clear for psychiatric care. Social work was consulted. Her CBC, ER abdominal panel, TSH, urinalysis, toxicology screens and COVID testing are negative. The patient did develop a migraine while in the emergency department and received subcutaneous Imitrex with good relief of her headache. She does not feel suicidal any longer. I spoke with her and he has removed the guns from the home and any guns that are left she does not have access to. He states that he feels safe with her at home. The patient feels safe going home. She does not want to be admitted as this will require her to be away from her 6-month-old who is exclusively breast-fed. The child has a very difficult time with bottlefeeding. As the patient is not currently suicidal, has good safety planning and a supportive spouse to be at home with her, we will allow her to go home at this time. She has an appointment with her doctor on Tuesday. Social work evaluated the patient as well. We will have the patient follow-up with her doctor for further care. Patient and family counseled regarding signs and symptoms for which I believe and urgent re-evaluation would be necessary. Patient with good understanding of and agreement to plan and is comfortable going home at this time This document was made in part using voice recognition software. While efforts are made to proofread this document, sound alike and grammatical errors may occur. Departure - Departure Disposition: Home, Self Care Clinical Impression: Suicidal ideation Depression Qualifiers: Depression Type: unspecified Qualified Code(s): F32.A - Depression, unspecified Condition: Good Instructions: ED Depression Follow-Up: Rigoberto Santos ARNP [Primary Care Provider] - Within 3 Days Comments: Please follow-up with your doctor on Tuesday as scheduled. Please return if you worsen or have increasing suicidal thoughts. The guns need to be kept locked up and away from you. Your states that he will be at home with you as well. Please follow-up as directed by social work. Crisis Line and is available to talk to someone [email or web address] is also available to chat with someone online if you prefer. There are also many resources on this website and apps for your phone to help with your mental health You can also text the word START to [phone] to chat with someome via text. Discharge Date/Time: 09/17/22 15:14
[2022-09-17 10:14] LABS: BASOPHILS % (AUTO) 0.5 %; EOSINOPHILS # (AUTO) 0.2 10^3/uL (0.0-0.7); EOSINOPHILS % (AUTO) 1.9 %; HCT - HEMATOCRIT 41.9 % (37.0-47.0); HGB - HEMOGLOBIN 13.9 g/dL (12.0-16.0); LYMPHOCYTES # (AUTO) 1.6 10^3/uL (1.5-3.5); LYMPHOCYTES % (AUTO) 19.8 %; MEAN CORPUSCULAR HEMOGLOBIN 28.9 pg (27.0-31.0); MEAN CORPUSCULAR HGB CONC 33.2 g/dL (32.0-36.0); MEAN CORPUSCULAR VOLUME 87.1 fL (81.0-99.0); MEAN PLATELET VOLUME 9.8 fL (7.9-10.8); MONOCYTES # (AUTO) 0.5 10^3/uL (0.0-1.0); MONOCYTES % (AUTO) 6.2 %; NEUTROPHILS # (AUTO) 5.8 10^3/uL (1.5-6.6); NEUTROPHILS % (AUTO) 71.4 %; PLT - PLATELET COUNT 306 10^3/uL (130-450); RED BLOOD COUNT 4.81 10^6/uL (4.20-5.40); RED CELL DISTRIBUTION WIDTH 13.1 % (12.0-15.0); WHITE BLOOD COUNT 8.1 x10^3/uL (4.8-10.8)
[2022-09-17 10:26] LABS: ACETAMINOPHEN < 10 ug/mL (10-30); ALBUMIN 4.2 g/dL (3.2-5.5); ALBUMIN/GLOBULIN RATIO 1.3 (1.0-2.2); ALKALINE PHOSPHATASE 74 IU/L (42-121); ALT ALANINE AMINOTRANSFERASE 15 IU/L (10-60); AST ASPARTATE AMINOTRANSFERASE 11 IU/L (10-42); BILIRUBIN,TOTAL 0.7 mg/dL (0.2-1.0); BUN - BLOOD UREA NITROGEN 13 mg/dL (6-20); CALCIUM 8.9 mg/dL (8.5-10.3); CARBON DIOXIDE - CO2 23 mmol/L (21-32); CHLORIDE 109 mmol/L (101-111); CREATININE 0.6 mg/dL (0.4-1.0); ETOH - ETHANOL < 5.0 mg/dL; GFR - MDRD 117 (>89); GLUCOSE 91 mg/dL (70-100); LIPASE 30 U/L (22-51); POTASSIUM 3.8 mmol/L (3.5-5.0); SALICYLATE < 6.0 mg/dL; SODIUM 137 mmol/L (135-145); TOTAL PROTEIN 7.5 g/dL (6.7-8.2)
[2022-09-17 10:57] LABS: MUDS CUTOFF CONCENTRATIONS CUTOFF CONC BELOW:
[2022-09-17 11:08] LABS: BILIRUBIN,URINE NEGATIVE (NEGATIVE); CLARITY,URINE CLEAR (CLEAR); GLUCOSE, URINE (UA) NEGATIVE (NEGATIVE); KETONES,URINE (UA) NEGATIVE (NEGATIVE); LEUKOCYTE ESTERASE, URINE NEGATIVE (NEGATIVE); NITRITE,URINE NEGATIVE (NEGATIVE); OCCULT BLOOD,URINE NEGATIVE (NEGATIVE); PROTEIN,URINE NEGATIVE (NEGATIVE); UROBILINOGEN,URINE 0.2 (NORMAL) E.U./dL (NORMAL)
[2022-09-17 11:17] LABS: AMPHETAMINE SCREEN,URINE NEGATIVE (NEGATIVE); BARBITURATE SCREEN,UR NEGATIVE (NEGATIVE); BENZODIAZEPINES SCREEN, URINE NEGATIVE (NEGATIVE); COCAINE SCREEN URINE NEGATIVE (NEGATIVE); METHADONE SCREEN, URINE NEGATIVE (NEGATIVE); METHAMPHETAMINES SCREEN, URINE NEGATIVE (NEGATIVE); OPIATE SCREEN, URINE NEGATIVE (NEGATIVE); OXYCODONE SCREEN, URINE NEGATIVE (NEGATIVE); PROPOXYPHENE SCREEN, URINE NEGATIVE (NEGATIVE); THC CANNABINOID SCREEN, URINE NEGATIVE (NEGATIVE); TRICYCLIC ANTIDEPRESSANT,URINE NEGATIVE (NEGATIVE)
[2022-09-17] MEDS ORDERED: SUMAtriptan 6 MG/0.5 ML VIAL SUBQ STA (12:58)
[2022-09-17 15:14] VITALS: BP 121/89
== END 2022-09-17 15:14 | disposition home or self-care (01) ==
LOC: EDUNIT# → ED 09:48
DX: R45.851 Suicidal ideations (principal); F32.A Depression, unspecified; Z20.822 Contact with and (suspected) exposure to COVID-19
CPT/HCPCS: 36415; 80053; 80306; 80307; 80320; 80329; 81001; 81003; 83690; 84443; 85025; 87086; 96372; 99284